=== PATIENT | male | born 1965 | race Caucasian/White ===

== ENCOUNTER 2016-04-24 14:25 | Outpatient (CLI) | payer OTHER ==
--- NOTE | 2016-04-24 18:31 | DIAGNOSTIC IMAGING REPORT ---
PROCEDURE: US VENOUS - BILATERAL EXT INDICATION: NON HEALING DIABETIC WOUNDS TECHNIQUE: Duplex sonography of the deep and superficial venous system in both lower extremities was performed. Compression and augmentation techniques were used. The patient was scanned in the upright position. Surveillance of the venous system during Valsalva maneuver when appropriate was performed. COMPARISON: None. FINDINGS: Each interrogated segment of the deep vein demonstrates normal compressibility, augmentation, and normal color Doppler flow without filling defect. No thrombus in either greater saphenous or short saphenous vein. There is no venous reflux in the right greater saphenous vein. The vein measures 7 mm in maximal diameter in the proximal segment. There is venous reflux in the left greater saphenous vein. Reflux duration is 1.2 seconds. The vein measures 6 mm in maximal diameter in the proximal segment. There is venous reflux in the left proximal superficial femoral vein deep system. The duration of reflux is 1.8 seconds. There is also reflux in the left popliteal vein for a duration of 2.2 seconds. No venous varicosities are seen. IMPRESSION: 1. Venous reflux in the proximal segments of the left superficial femoral vein, popliteal vein, and the left greater saphenous vein. 2. Mildly prominent diameters of both proximal greater saphenous veins. 3. No DVT in either lower extremity.
--- NOTE | 2016-04-24 19:14 | DIAGNOSTIC IMAGING REPORT ---
PROCEDURE: US ART LOWER EXT WITH GROVER-B/L INDICATION: NON HEALING DIABETIC WOUNDS diabetes, smoker TECHNIQUE: Color Doppler duplex imaging of the lower extremity arterial system was performed bilaterally. Pre exercise ABIs were acquired. The patient was unable to exercise. COMPARISON: None. FINDINGS: RIGHT LOWER EXTREMITY: ABIs: Pre exercise posterior tibial: 1.09 Pre exercise dorsalis pedis: 1.04 VESSELS/ WAVEFORMS: Irregular heart rate. Triphasic arterial inflow. Triphasic flow through the distal superficial femoral artery. Monophasic flow in the popliteal artery and calf arteries. No significant stenosis visible. RIGHT LOWER EXTREMITY PEAK SYSTOLIC VELOCITIES: External iliac: 162 cm/second. Common femoral artery: 172 cm/second. Profunda femoral artery: 111 cm/second. Proximal superficial femoral artery: 110 cm/second. Mid superficial femoral artery: 106 cm/second. Distal superficial femoral artery: 159 cm/second. Popliteal artery: 74 cm/second. Proximal posterior tibial artery: 62 cm/second. Proximal anterior tibial artery: 50 cm/second. Peroneal artery: Not seen cm/second. Distal posterior tibial artery: 66 cm/second. Dorsalis pedis artery: 77 cm/second. LEFT LOWER EXTREMITY: ABIs: Pre exercise posterior tibial: 1.03 Pre exercise dorsalis pedis: 1.04 VESSELS/ WAVEFORMS: Triphasic arterial inflow. Monophasic flow in the proximal segment of the superficial femoral artery and distal throughout the left lower extremity. No significant plaque or focal stenosis visible. LEFT LOWER EXTREMITY PEAK SYSTOLIC VELOCITIES: External iliac: 106 cm/second. Common femoral artery: 88 cm/second. Profunda femoral artery: 92 cm/second. Proximal superficial femoral artery: 140 cm/second. Mid superficial femoral artery: 147 cm/second. Distal superficial femoral artery: 160 cm/second. Popliteal artery: 77 cm/second. Proximal posterior tibial artery: 89 cm/second. Proximal anterior tibial artery: 72 cm/second. Peroneal artery: Not seen cm/second. Distal posterior tibial artery: 94 cm/second. Dorsalis pedis artery: 94 cm/second. IMPRESSION: 1. Monophasic arterial flow in the distal lower extremities bilaterally suggestive of small-vessel atherosclerosis. 2. No significant calcification or focal stenosis visible. 3. No evidence of arterial insufficiency at rest. The patient was unable to exercise secondary to foot wounds.
== END 2016-04-24 23:00 ==
LOC: US SRH 14:25
DX: E11.622 Type 2 diabetes mellitus with other skin ulcer (principal); L97.811 Non-pressure chronic ulcer of other part of right lower leg limited to breakdown of skin; I87.2 Venous insufficiency (chronic) (peripheral)

== ENCOUNTER 2016-04-26 10:24 | Outpatient (CLI) | payer OTHER | END 2016-04-26 23:00 | LOC: LAB SRH 10:24 | DX: L97.529 Non-pressure chronic ulcer of other part of left foot with unspecified severity (principal) | CPT/HCPCS: 90047; 90074; 90101; 91286; 92510; 95059 ==